=== PATIENT | female | born 1980 | race African-American/Black ===

== ENCOUNTER 2017-05-10 16:24 | Emergency (ER) | payer MEDICAID ==
[~2017-05-10] VITALS: Ht 165.1 cm; Wt 110.0 kg
[~2017-05-10 16:24] MED LIST: NAPR550 PO; OXYC-360 PO; SENN1TAB11 PO; Z.0.NO CURRENT MEDS
[2017-05-10 16:25] VITALS: BP 155/83; PULSE 101; RESP 16; TEMP 98.2; TEMP 99.1; O2SAT 98
[2017-05-10] MEDS ORDERED: AMOX500C PO (17:03)
[2017-05-10] MEDS ORDERED: MAGICPED SWISH-SWAL (17:03)
[2017-05-10] MEDS ORDERED: IBUP800T23 PO (17:03)
--- NOTE | 2017-05-10 17:03 | PD ---
HPI Chief Complaint: ENT Complaint Time Seen by Provider: 16:56 Travel History International Travel<30 days: No Contact w/Intl Traveler<30days: No Traveled to known affect area: No History of Present Illness HPI 36-year-old female presents to the emergency Department with complaint of sore throat since last night. Denies lump in throat, difficulty swallowing, usual drooling. Reports painful swelling. Says the pain is mainly on the right side and radiates to her right ear. Denies fever, headache, vomiting, nasal congestion, cough. No one else with similar symptoms. Has not taken any medication or drainage to alleviate her symptoms. Pain is constant. No known allergies. Has no other medical complaints. No other modifying factors or associated signs and symptoms. PFSH Past Medical History ?: Not : 4 Para: 4 Past Surgical History Section: Yes Genitourinary Surgery: Yes () Social History Alcohol Use: Yes (OCC) Tobacco Use: Yes (15 CIG/DAY) Substance Use: No Allergies-Medications (Allergen,Severity, Reaction): Coded Allergies: No Known Allergies (Verified , 05/10/17) Reported Meds & Prescriptions Reported Meds & Active Scripts Active Magic Mouthwash Pediatric/Adult Liq (Lidocaine/Diphenhydr/Alum/Mg/Simeth) 60 Ml Susp 5 Ml SWISH-SWAL Q3HR PRN Each 5mL contains: Diphenydramine 4.5mg, Viscous Lidocaine 2% 10mg, Maalox Advanced Regular Strength 2.7ml Ibuprofen 800 Mg Tab 800 Mg PO Q6HR PRN Amoxicillin 500 Mg Cap 500 Mg PO BID 10 Days Reported Senna Plus 8.6-50 mg (Senna/Docusate Sodium) 1 Tab Tab 2 Tab PO HS Anaprox Ds (Naproxen Sodium) 550 Mg Tab 550 Mg PO QIDPRN Percocet (Oxycodone/Acetaminophen) 5 Mg/325 Mg Tab 1 Tab PO Q6HPRN FOR PAIN No Current Meds (Miscellaneous Medication) Misc Review of Systems Except as stated in HPI: all other systems reviewed are Neg Physical Exam Narrative GENERAL: Well-nourished, well-developed black female patient, in no acute distress; low-grade fever 99.1, nontoxic-appearing SKIN: Warm and dry. No rash. HEAD: Atraumatic. Normocephalic. EYES: Pupils equal and round at 3 mm with brisk reaction. No scleral icterus. No injection or drainage. PERRLA. ENT: Mucosa pink and dry. Pharynx with 2+ tonsils; with erythema, exudate, and edema; exudate noted more on right side than left. No Uvular edema. No uvular, palatal, or tonsillar deviation. Airway patent. Voice is hoarse. EARS: Bilateral pinnae and external canals appear within normal limits. Bilateral tympanic membranes without erythema, dullness or perforation.. NECK: Trachea midline. Anterior cervical lymphadenopathy and tenderness. CARDIOVASCULAR: Regular rate. RESPIRATORY: No accessory muscle use. GASTROINTESTINAL: Abdomen soft, non-tender, nondistended. Hepatic and splenic margins not palpable. Bowel sounds are active 4 quadrants. MUSCULOSKELETAL: No obvious deformities. No clubbing. No cyanosis. No edema. NEUROLOGICAL: Awake and alert. Oriented 3. No obvious cranial nerve deficits. Motor grossly within normal limits. Normal speech. Moves all extremities. PSYCHIATRIC: Appropriate mood and affect; insight and judgment normal. Data Data Last Documented VS Vital Signs Date Time Temp Pulse Resp B/P (MAP) Pulse Ox O2 Delivery O2 Flow Rate FiO2 05/10/17 16:25 99.1 101 16 155/83 (107) 98 Orders Orders Group A Rapid Strep Screen (05/10/17 17:03) Ibuprofen (Motrin) (05/10/17 17:15) MDM Medical Decision Making Medical Screen Exam Complete: Yes Emergency Medical Condition: Yes Medical Record Reviewed: Yes Differential Diagnosis Exudative pharyngitis, strep pharyngitis, viral pharyngitis, otitis media, less likely peritonsillar abscess Narrative Course 36-year-old female physical exam consistent with exudative pharyngitis. Patient has low-grade fever of 99.1. Denies lump in throat, difficulty swallowing, and usual drooling. Reports painful swallowing. Rapid strep ordered and pending. Ibuprofen administered in the ER. I will treat the patient with amoxicillin for exudative pharyngitis. Amoxicillin, Magic mouthwash, ibuprofen prescribed for home. Instructed patient to follow up with primary care provider. Patient verbalizes understanding and agreement with treatment plan. Patient is medically cleared and stable for discharge. Discussed reasons to return to the emergency department. Patient agrees with treatment plan. The patients vital signs are stable and the patient is stable for outpatient follow-up and treatment. Patient discharged home, stable and in no acute distress. Diagnosis Primary Impression: Exudative pharyngitis Referrals: Primary Care Physician Patient Instructions: General Instructions, Pharyngitis (ED) Departure Forms: Tests/Procedures, Work Release Enter return to work date: May 12, 2017 Additional Instructions: Take Antibiotics as prescribed and complete full course of antibiotics Throw away and change your toothbrush 24 hours after starting antibiotics Get plenty of sleep/rest Rest your voice Drink plenty of fluids to prevent dehydration Use warm saltwater gargles to soothe throat pain Use an air humidifier/turn off ceiling fans Use throat lozenges as needed for sore throat Use ibuprofen or acetaminophen as needed to relieve pain and fever Follow-up with your primary care provider within 2-4 days Return immediately to the emergency department with worsening of symptoms Med/Other Pt SpecificInfo: Prescription(s) given Scripts Dofnwwbybhhpaaa-Pyikltlpf-Cpz-Alum-Simeth Liq (Magic Mouthwash Pediatric/Adult Liq) 60 Ml Susp 5 ML SWISH-SWAL Q3HR Y for SORE THROAT, #60 ML 0 Refills Each 5mL contains: Diphenydramine 4.5mg, Viscous Lidocaine 2% 10mg, Maalox Advanced Regular Strength 2.7ml Prov: Isaura Torres 05/10/17 Ibuprofen (Ibuprofen) 800 Mg Tab 800 MG PO Q6HR Y for PAIN, #30 TAB 0 Refills Prov: Isaura Torres 05/10/17 Amoxicillin (Amoxicillin) 500 Mg Cap 500 MG PO BID for Infection for 10 Days, #20 CAP 0 Refills Prov: Isaura Torres 05/10/17 Disposition: 01 DISCHARGE HOME Condition: Stable Isaura Torres May 10, 2017 17:03
[2017-05-10] MEDS ORDERED: IBUPROFEN 800 MG TAB PO ONE (17:15)
== END 2017-05-10 17:18 | disposition home or self-care (01) ==
LOC: NEPK 16:24
DX: J02.0 Streptococcal pharyngitis (principal); B95.0 Streptococcus, group A, as the cause of diseases classified elsewhere; F17.210 Nicotine dependence, cigarettes, uncomplicated
CPT/HCPCS: 87880; 99284